=== PATIENT | male | born 1975 | race Caucasian/White ===

== ENCOUNTER 2021-08-30 09:12 | Inpatient (IN) | payer OTHER ==
[~2021-08-30] VITALS: Ht 180.3 cm; Wt 165.5 kg
[2021-08-30 09:16] VITALS: BP 153/107
[2021-08-30 09:55] LABS: BASOPHILS 0.8 % (0.0-2.0); CALCIUM 8.3 mg/dL (8.5-10.1); CREATININE 0.9 mg/dL (0.7-1.3); EOSINOPHILS 0.7 % (0.0-3.0); HEMATOCRIT 46.1 % (42.0-52.0); HEMOGLOBIN 15.1 gm/dL (14.0-18.0); LYMPHOCYTES 29.3 % (24.0-44.0); MCHC 32.8 g/dL (28.0-37.0); MCV 82.3 fL (80.0-100.0); MONOCYTES 8.4 % (1.0-8.0); PLATELET COUNT 310 thou/uL (150-400); POLYS 60.8 % (36.0-66.0); POTASSIUM 4.6 mmol/L (3.5-5.1); RDW 14.9 % (10.5-14.5); WBC 8.2 thou/uL (4.0-11.0)
[2021-08-30 09:56] LABS: BE(vivo) -6.1 mmol/L (-2 to +3); HCO3 21.5 mmol/L (22.0-26.0); PCO2 50.2 mmHg (35.0-45.0); PO2 62.6 mmHg (80.0-100.0); sO2 88.1 % (92.0-98.0)
[2021-08-30 09:58] LABS: MAGNESIUM 2.1 mg/dL (1.8-2.4); PHOSPHORUS 5.2 mg/dL (2.6-4.7); SALICYLATE < 2.8 mg/dL (2.8-20.0)
[2021-08-30 10:05] LABS: ALBUMIN 3.7 g/dL (3.4-5.0); TOTAL BILIRUBIN 0.5 mg/dL (0.2-1.0)
[2021-08-30 11:40] LABS: URINE BILIRUBIN NEGATIVE (Negative); URINE BLOOD 1+ (Negative); URINE CLARITY CLEAR; URINE COLOR YELLOW; URINE GLUCOSE-RANDOM* NEGATIVE (Negative); URINE KETONES NEGATIVE (Negative); URINE LEUKOCYTES-REFLEX NEGATIVE (Negative); URINE NITRITE-REFLEX NEGATIVE (Negative); URINE PROTEIN (DIPSTICK) 2+ (Negative); URINE SPECIFIC GRAVITY 1.015 (1.005-1.035); URINE UROBILINOGEN 0.2 E.U./dl (0.2-1.0)
[2021-08-30 11:49] LABS: AMP/METHAMP Negative (Negative); BARBITURATES Negative (Negative); BENZODIAZEPINES Negative (Negative); COCAINE POSITIVE (Negative); METHADONE Negative (Negative); OPIATES Negative (Negative); PCP Negative (Negative)
[2021-08-30 11:50] LABS: SQUAMOUS 0-3 Few /LPF (0-3)
[2021-08-30 11:51] LABS: BACTERIA-REFLEX 1-9 Few /HPF (None Seen); CASTS None Seen /LPF (None Seen); CRYSTALS None Seen /LPF (None Seen); URINE RBC 1-2 Rare /HPF (NONE SEEN); URINE WBC-REFLEX 0-5 Rare /HPF (0-5)
[2021-08-30 15:08] VITALS: BP 179/103
[2021-08-30 17:18] VITALS: BP 179/103
[2021-08-30 17:50] VITALS: BP 180/96
[2021-08-30 20:15] VITALS: BP 151/86
--- NOTE | 2021-08-31 02:28 | NUR ---
PATIENT RESTING IN HIS ROOM AAOX4. COOPERATIVE AND FOLLOWING ALL COMMANDS. DENIES PAIN OR NEEDS. NO S/S OF DISTRESS. STATES THAT HE IS READY TO GO HOME. PT EXHIBITS NO S/S OF LETHARGY. AMBULATES ON HIS OWN. WILL CONTINUE TO MONITOR FOR CHANGES IN STATUS.
[2021-08-31 04:40] LABS: CREATININE 0.9 mg/dL (0.7-1.3)
[2021-08-31 04:42] LABS: POTASSIUM 3.1 mmol/L (3.5-5.1)
[2021-08-31 04:45] VITALS: BP 149/68
[2021-08-31 07:21] LABS: HEMATOCRIT 40.7 % (42.0-52.0); HEMOGLOBIN 13.4 gm/dL (14.0-18.0); MCH 26.7 pg (26.0-34.0); MCHC 32.9 g/dL (28.0-37.0); MCV 81.2 fL (80.0-100.0); RBC 5.02 mil/uL (4.50-6.00); RDW 14.8 % (10.5-14.5); WBC 19.5 thou/uL (4.0-11.0)
[2021-08-31 08:00] VITALS: BP 150/70
[2021-08-31 13:50] VITALS: BP 150/70
[2021-08-31 16:00] VITALS: BP 197/82
[2021-08-31 17:41] VITALS: BP 197/82
[2021-08-31 19:59] VITALS: BP 161/101
[2021-09-01 04:02] VITALS: BP 163/96
--- NOTE | 2021-09-01 04:28 | NUR ---
PATIENT AAOX4. DENIES PAIN OR NEEDS. 95% 3L NC. ABLE TO AMBULATE ON HIS OWN POWER. VSS. COMPLIANT WITH MEDICATION AND TREATMENT. ALL SAFETY PRECAUTIONS IN PLACE. VOIDS PER URINAL/TOILET. NO S/S OF DISTRESS NOTED. WILL CONTINUE TO MONITOR.
[2021-09-01 04:35] LABS: CALCIUM 8.5 mg/dL (8.5-10.1); CREATININE 0.9 mg/dL (0.7-1.3); POTASSIUM 3.9 mmol/L (3.5-5.1)
[2021-09-01 08:00] VITALS: BP 125/84
[2021-09-01 08:30] VITALS: BP 162/92
[2021-09-01 12:15] VITALS: BP 162/92
[2021-09-01 16:15] VITALS: BP 171/94
--- NOTE | 2021-09-01 16:19 | NUR ---
CM FOLLOWING FOR POSSIBLE HOME O2 NEEDS. PT NEEDS EXER OX. ORDER PLACED HOWEVER NOT PERFORMED AT THIS TIME. CM WILL CONTINUE TO FOLLOW FOR POSSIBLE NEEDS FOR O2 ONCE PT MEDICALLY STABLE TO DC. NO ASSESSMENT PERFORMED AT THIS TIME. PT UP ADLIB IN ROOM. NO THERAPY ORDERS.
[2021-09-01] MEDS ORDERED: NAPROSYN500 MG PO (17:59)
[2021-09-01] MEDS ORDERED: NORVASC5 M1 PO (18:00)
--- NOTE | 2021-09-01 18:50 | NUR ---
PATIENT EXPRESSED CONCERN FOR TIGHTNESS IN CHEST WHILE COUGHING. THIS NURSE CONTINUED ANTIBIOTIC THERAPY D/T ASPIRATION PNEUMONIA. PATIENT IN AFTERNOON EXPRESSED THANKFULNESS FOR ANTIOBIOTICS D/T DECREASED TIGHTNESS IN CHEST. PATIENT BLOOD PRESSURE INCREASED STEADILY THROUGH THIS SHIFT. THIS NURSE ADMINISTERED TWO BLOOD PRESSURE MEDICATIONS.
--- NOTE | 2021-09-01 19:19 | NUR ---
PATIENT BLOOD PRESSURE DECREASED TO MANAGEABLE RANGE AT END OF SHIFT.
[2021-09-01 20:42] VITALS: BP 161/89
[2021-09-02 01:04] VITALS: BP 190/123
[2021-09-02 03:26] LABS: HEMATOCRIT 40.1 % (42.0-52.0); HEMOGLOBIN 13.1 gm/dL (14.0-18.0); MCH 26.8 pg (26.0-34.0); MCHC 32.6 g/dL (28.0-37.0); MCV 82.1 fL (80.0-100.0); RBC 4.88 mil/uL (4.50-6.00); RDW 14.4 % (10.5-14.5)
[2021-09-02 03:50] LABS: CALCIUM 8.6 mg/dL (8.5-10.1); CREATININE 0.9 mg/dL (0.7-1.3); POTASSIUM 3.2 mmol/L (3.5-5.1)
[2021-09-02 07:00] VITALS: BP 158/91
--- NOTE | 2021-09-02 08:07 | NUR ---
ASSESSMENT CHARTED, ELEVATED BP'S WITH NEW MEDS STARTED ON PREVIOUSE SHIFT, NO C/O PAIN, UP ADLIB IN ROOM, TOLERATING REG DIET, REPORT GIVEN TO NEXT SHIFT TO CON'T PPOC
[2021-09-02 11:00] VITALS: BP 145/75
[2021-09-02] MEDS ORDERED: NORVASC5 M1 PO (11:26)
[2021-09-02] MEDS ORDERED: ZESTRIL40 MG PO (11:26)
[2021-09-02] MEDS ORDERED: METOPROLOL SUCC50 MG PO (11:26)
[2021-09-02] MEDS ORDERED: CEFUROXIME500 MG PO (11:28)
--- NOTE | 2021-09-02 12:17 | EKG ---
[address] [address] ELECTROCARDIOGRAM REPORT Name: MANPREET MELENDEZ Room #: 207-P ADM IN M.R.#: [id number] Admission: 08/30/21 Attend Phys: Dave Viera MD Discharge: Date of : 73 Report #: [id number] [facility] ED Test Date: 2021-08-30 Test Time: 09:52:05 Pat Name: MANPREET MELENDEZ Department: Room: 207 P Gender: M Cco: fadumo : 1975 Requested By: Tal Najera Order Number: [id number] MD: Castillo Ernandez Measurements Intervals [place] Rate: 104 P: 66 KS: 155 QRS: 25 QRSD: 103 T: 10 QT: 390 QTc: 513 Interpretive Statements Sinus tachycardia Minimal ST depression Prolonged QT interval No previous ECG available for comparison Electronically Signed On 09-02-2021 12:16:55 MACHINERY MECHANIC by Castillo Ernandez [email or web address] <ELECTRONICALLY SIGNED> By: Castillo Ernandez MD, [facility] 09/02/21 [id number] 1 Castillo Ernandez MD, FACC /EPI
--- NOTE | 2021-09-02 13:20 | NUR ---
Pt triggered for excessive BMI 50.9. Noted with height descrepencies and stated height 75", 70" entered in [place]. If ht 75", BMI lowers to 45.5; still extreme class III range. Pt admitted for cocaine OD, likely d/c today or tomorrow per pt. He declines any nutrition education needs at this time but reports he will f/u if he is interested in healthy weight loss strategies before he goes. Good intakes at meals on regular diet. Low nutrition risk.
[2021-09-02 13:45] VITALS: BP 145/75
--- NOTE | 2021-09-02 13:48 | NUR ---
Pt's insurance plan verified by CM real estate legal assistant and provided to admitting. Pt given [facility] number to make call for an appt to [facility] pcp (in his dc instructions). No other needs noted.
[2021-09-02 14:38] VITALS: BP 145/75
--- NOTE | 2021-09-02 16:26 | NUR ---
assessment as charted - meds as per lópez - jass diet and fluids. no co's of pain or nasuea. up ad norberto in room. pt home this afternoon - instruction re home meds/ care and follow up given to patient - stated understanding of instruction given. left unit ambulatory - home accompanied by sister - via pvt vheicle. no co's at time of d/c.
== END 2021-09-02 16:28 | disposition home or self-care (01) | DRG 917 ==
LOC: ER 09:12 → EROBS 13:01 → 2N 13:01
PROVIDERS: Emergency Medicine; ADMIT Hospitalist; ATTEND Hospitalist
DX: T40.5X1A Poisoning by cocaine, accidental (unintentional), initial encounter (principal); J69.0 Pneumonitis due to inhalation of food and vomit; J96.01 Acute respiratory failure with hypoxia; Z68.43 Body mass index [BMI] 50.0-59.9, adult; E11.9 Type 2 diabetes mellitus without complications; F17.210 Nicotine dependence, cigarettes, uncomplicated; F14.10 Cocaine abuse, uncomplicated; E66.01 Morbid (severe) obesity due to excess calories; Y92.89 Other specified places as the place of occurrence of the external cause; Z72.89 Other problems related to lifestyle
CPT/HCPCS: 10081; 10194